=== PATIENT | male | born 2005 | race Caucasian/White ===

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

== ENCOUNTER 2024-04-22 10:09 | Emergency (ER) | payer MEDICAID, OTHER ==
[~2024-04-22] VITALS: Ht 177.8 cm; Wt 77.1 kg
[~2024-04-22 10:09] MED LIST: IBUP-1953 PO
[2024-04-22] MEDS ORDERED: PANTOPRAZOLE 40 MG VIAL ONE (10:50)
[2024-04-22] MEDS ORDERED: ONDANSETRON HCL/PF 4 MG/2 ML VIAL ONE (10:50)
[2024-04-22] MEDS: IV NS 0.9% 1,000 ML BAG IV ONE (10:53)
[2024-04-22] MEDS: PANTOPRAZOLE 40 MG VIAL IV ONE (10:57)
[2024-04-22] MEDS: ONDANSETRON HCL/PF 4 MG/2 ML VIAL IVP ONE (10:58)
[2024-04-22 10:59] LABS: BASOPHILS % (AUTO) 0.5 % (0.0-2.0); EOSINOPHILS % (AUTO) 0.2 % (0.0-6.0); HEMATOCRIT 46 % (39-51); HEMOGLOBIN 15.8 g/dL (13.5-17.5); LYMPHOCYTES # (AUTO) 0.7 K/uL (0.8-4.8); LYMPHOCYTES % (AUTO) 16.2 % (20.0-44.0); MEAN CORPUSCULAR HEMOGLOBIN 30 PG (26.0-33.0); MEAN CORPUSCULAR HGB CONC 34 g/dl (31.0-36.0); MEAN CORPUSCULAR VOLUME 87 fL (80-96); MONOCYTES # (AUTO) 0.5 K/uL (0.1-1.30); MONOCYTES % (AUTO) 11.4 % (2.0-12.0); NEUTROPHILS % (AUTO) 71.7 % (43.0-81.0); PLATELET COUNT (AUTO) 274 K/uL (150-450); RED BLOOD CELL COUNT(AUTO) 5.28 MIL/uL (4.5-6.0); RED CELL DISTRIBUTION WIDTH 13.1 % (11.5-15.0); WHITE BLOOD COUNT (AUTO) 4.1 K/uL (4.3-11.0)
[2024-04-22 11:07] LABS: CALCIUM, SERUM 9.5 mg/dL (8.5-10.1); CREATININE 1.2 mg/dL (0.6-1.3)
[2024-04-22 11:13] LABS: ALBUMIN 3.7 g/dL (3.4-5.0); BILIRUBIN,DIRECT 0.1 mg/dL (0.0-0.2); BILIRUBIN,TOTAL 0.5 mg/dL (0.2-1.0); TOTAL PROTEIN, SERUM 7.7 g/dL (6.4-8.2)
[2024-04-22] MEDS ORDERED: LOPE2CAP40 PO (12:01)
[2024-04-22] MEDS ORDERED: IBUP-1953 PO (12:01)
[2024-04-22 12:54] VITALS: BP 121/69; TEMP 98.1; O2SAT 98
== END 2024-04-22 12:32 | disposition home or self-care (01) ==
LOC: ER 10:14
DX: A08.4 Viral intestinal infection, unspecified (principal); R74.01 Elevation of levels of liver transaminase levels; Z88.0 Allergy status to penicillin
CPT/HCPCS: 99285; 74176; 96374; 71045; 96361; 96375; 85025; 80048; 83690; 80076; 36415; J2405; J7030; C9113

== ENCOUNTER 2024-05-03 09:58 | Emergency (ER) | payer OTHER ==
[~2024-05-03] VITALS: Ht 180.3 cm; Wt 77.1 kg
[~2024-05-03 09:58] MED LIST changes: +LOPE2CAP40 PO
[2024-05-03] MEDS ORDERED: ONDA4TAB5 PO (10:30)
[2024-05-03] MEDS ORDERED: AZIT1PAC9 PO (10:30)
[2024-05-03 11:00] VITALS: BP 111/69; TEMP 98.7; O2SAT 99
== END 2024-05-03 11:01 | disposition home or self-care (01) ==
LOC: ER 10:02
DX: J02.9 Acute pharyngitis, unspecified (principal); Z79.899 Other long term (current) drug therapy; Z88.0 Allergy status to penicillin